=== PATIENT | female | born 1995 | race Caucasian/White ===

== ENCOUNTER 2021-01-15 21:22 | Emergency (ER) | payer OTHER ==
--- NOTE | 2021-01-15 23:16 | ED Physician Documentation ---
PD HPI SKIN - Stated complaint Stated Complaint: RT LEG INJ/SWELLING - Chief complaint Chief Complaint: Wound - History obtained from History obtained from: Patient - Additional information Additional information: 25-year-old woman presents with abrasion of right anterior leg after scraping it on a piece of equipment yesterday. Since the initial injury it has become more red and swollen and she is concerned that it is infected. Denies other injury, fever, or other symptoms. Review of Systems Constitutional: denies: Fever Skin: reports: Abrasion (s) Musculoskeletal: reports: Extremity pain PD PAST MEDICAL HISTORY - Past Medical History Past Medical History: No - Present Medications Home Medications: Ambulatory Orders Medication Instructions Recorded Confirmed Mupirocin 22 gm TP TID 10 Days #1 bottle 01/15/21 - Allergies Allergies/Adverse Reactions: Allergies Allergy/AdvReac Type Severity Reaction Status Date / Time azithromycin [From Zithromax] Allergy Unknown Verified 01/15/21 21:45 - Social History Does the pt smoke?: No Smoking Status: Never smoker Does the pt drink ETOH?: No Does the pt have substance abuse?: No - Immunizations Immunizations are current?: Yes - POLST Patient has POLST: No PD ED PE NORMAL - Vitals Vital signs reviewed: Yes - General General: Alert and oriented X 3, No acute distress, Well developed/nourished - HEENT HEENT: Atraumatic, PERRL, EOMI - Neck Neck: Supple, no meningeal sign - Derm Derm: Normal color, Warm and dry, Other (3 cm diameter abrasion to right anterior leg with out fluctuance. Moderate erythema. Discomfort with palpation) Results - Vitals Vitals: Vital Signs - 24 hr 01/15/21 21:41 Temperature 36.5 C Heart Rate 86 Respiratory 16 Rate Blood Pressure 131/72 H O2 Saturation 98 Oxygen O2 Source Room air PD MEDICAL DECISION MAKING - ED course ED course: 25-year-old woman presents with infected abrasion. Will prescribe antibiotics that cover MRSA. Return precautions given. [place] - Departure Disposition: 01 Home, Self Care Clinical Impression: Abrasion, Cellulitis Condition: Good Instructions: ED Abrasion, ED Infec Skin Cellulitis Prescriptions: Mupirocin 22 gm TP TID 10 Days #1 bottle Comments: You are seen in the emergency department for an abrasion to the skin that appears to have a mild infection. Continue to alberto the skin with a And and monitor for any signs of spread. Use the antibiotic ointment that I prescribed to protect against MRSA. Return to the emergency department if you have any new or worsening symptoms or other concerns. Follow-up with your flight surgeon.
[2021-01-15 23:19] VITALS: BP 128/70
== END 2021-01-15 23:18 | disposition home or self-care (01) ==
LOC: ED 21:22
DX: S80.811A Abrasion, right lower leg, initial encounter (principal); L03.115 Cellulitis of right lower limb; W31.9XXA Contact with unspecified machinery, initial encounter
CPT/HCPCS: 99282; 99283